=== PATIENT | male | born 1960 | race African-American/Black ===

== ENCOUNTER 2016-09-12 14:57 | Emergency (ER) | payer MEDICAID ==
[~2016-09-12] VITALS: Ht 175.3 cm; Wt 100.7 kg
[~2016-09-12 14:57] MED LIST: AMITR; ATEN1TAB38; GLYB2.5T76
[2016-09-12] MEDS ORDERED: IOHEXOL 350 MG/ML 100ML IJ ONE (15:23)
[2016-09-12 16:50] LABS: Basophils # (auto) 0 uL; Basophils % (auto) 0.5 % (0.0-2.0); DEFINITIVE VIEW TRANSMISSION; Eosinophils # (auto) 0.2 uL; Eosinophils % (auto) 3.1 % (0.0-7.0); Hematocrit 44.6 % (41.0-53.0); Hemoglobin 14.5 g/dL (13.5-17.5); Lymphocytes # (auto) 2.2 uL; Lymphocytes % (auto) 34.6 % (10.0-50.0); Mean Corpuscular Hemoglobin 26.1 pg (28.0-32.0); Mean Corpuscular Hgb Conc. 32.6 g/dL (32.0-36.0); Mean Corpuscular Volume 80.1 fL (80.0-100.0); Mean Platelet Volume 8.5 fL (7.4-10.4); Monocytes # (auto) 0.3 uL; Monocytes % (auto) 5.1 % (0.0-12.0); Neutrophils # (auto) 3.6 uL; Neutrophils % (auto) 56.7 % (37.0-80.0); Platelet Count (auto) 274 10^3/uL (140-450); Red Cell Distribution Width 14.6 % (11.6-16.0); White Blood Cell 6.4 10^3/uL (4.4-10.8)
[2016-09-12 16:57] LABS: Albumin 3.8 g/dL (3.4-5.0); BUN/Creatinine Ratio 9.5; Bilirubin, Total 0.4 mg/dL (0.2-1.0); Calcium 8.9 mg/dL (8.5-10.1); Potassium 3.9 mmol/L (3.5-5.1); Total Protein 7.7 g/dL (6.4-8.2)
[2016-09-12 20:43] VITALS: BP 131/62
== END 2016-09-13 02:33 | disposition home or self-care (01) ==
LOC: ER 15:00
DX: R10.11 Right upper quadrant pain (principal); R11.0 Nausea; G89.29 Other chronic pain; E11.9 Type 2 diabetes mellitus without complications; I10 Essential (primary) hypertension; I25.2 Old myocardial infarction; Z87.891 Personal history of nicotine dependence; Z79.899 Other long term (current) drug therapy
CPT/HCPCS: 36415; 74176; 80053; 82150; 83690; 85025; 93005; 99285; Q9967

== ENCOUNTER 2016-09-16 17:25 | Emergency (ER) | payer MEDICAID ==
[~2016-09-16] VITALS: Ht 175.3 cm; Wt 100.7 kg
[2016-09-16 19:15] LABS: Basophils # (auto) 0 uL; DEFINITIVE VIEW TRANSMISSION; Eosinophils # (auto) 0.1 uL; Eosinophils % (auto) 2.7 % (0.0-7.0); Hemoglobin 13.7 g/dL (13.5-17.5); Lymphocytes # (auto) 1.8 uL; Monocytes # (auto) 0.3 uL; Monocytes % (auto) 5.7 % (0.0-12.0); Neutrophils # (auto) 2.9 uL; Red Cell Distribution Width 14.2 % (11.6-16.0)
[2016-09-16 19:19] LABS: Basophils % (auto) 0.8 % (0.0-2.0); Hematocrit 42.2 % (41.0-53.0); Lymphocytes % (auto) 35.3 % (10.0-50.0); Mean Corpuscular Hemoglobin 25.4 pg (28.0-32.0); Mean Corpuscular Hgb Conc. 32.4 g/dL (32.0-36.0); Mean Corpuscular Volume 78.5 fL (80.0-100.0); Mean Platelet Volume 8.3 fL (7.4-10.4); Neutrophils % (auto) 55.5 % (37.0-80.0); Platelet Count (auto) 283 10^3/uL (140-450); White Blood Cell 5.2 10^3/uL (4.4-10.8)
[2016-09-16 19:34] LABS: Albumin 3.8 g/dL (3.4-5.0); BUN/Creatinine Ratio 6.1; Potassium 3.9 mmol/L (3.5-5.1)
[2016-09-16 19:37] LABS: Bilirubin, Total 0.2 mg/dL (0.2-1.0); Total Protein 7.8 g/dL (6.4-8.2)
[2016-09-17] MEDS ORDERED: cefTRIAXone 1GM/50ML D5W 50 ML IV ONE (03:15)
[2016-09-17] MEDS ORDERED: metroNIDAZOLE 500MG/100ML 100 ML IV ONE (03:15)
[2016-09-17 05:59] VITALS: BP 135/87
== END 2016-09-17 06:00 | disposition home or self-care (01) ==
LOC: ER 17:32
DX: K52.9 Noninfective gastroenteritis and colitis, unspecified (principal); E11.9 Type 2 diabetes mellitus without complications; I10 Essential (primary) hypertension; I25.2 Old myocardial infarction; Z87.891 Personal history of nicotine dependence
CPT/HCPCS: 36415; 74176; 76705; 80053; 82150; 83690; 85025; 94761; 96365; 96367; 99285; J0696; J3490

== ENCOUNTER 2021-07-02 11:23 | Emergency (ER) | payer MEDICARE, MEDICAID ==
[~2021-07-02] VITALS: Ht 175.3 cm; Wt 90.3 kg
[~2021-07-02 11:23] MED LIST changes: +AMIT25TA11 PO; -AMITR; +ASPI-543 PO; -ATEN1TAB38; -GLYB2.5T76; +LISI20TA28 PO; +METF-370 PO; +METO-159 PO
[2021-07-02 12:43] LABS: Basophils # (auto) 0.1 10 ^3/uL (0-0.2); Eosinophils # (auto) 0.1 10 ^3/uL (0-0.8); Eosinophils % (auto) 3.1 % (0.0-7.0); Hematocrit 41.7 % (41.0-53.0); Hemoglobin 13.5 g/dL (13.5-17.5); Lymphocytes # (auto) 1.5 10 ^3/uL (0.4-5.4); Lymphocytes % (auto) 35.8 % (10.0-50.0); Mean Corpuscular Hemoglobin 25.7 pg (28.0-32.0); Mean Corpuscular Hgb Conc. 32.4 g/dL (32.0-36.0); Mean Corpuscular Volume 79.1 fL (80.0-100.0); Monocytes # (auto) 0.2 10 ^3/uL (0-1.3); Monocytes % (auto) 5.2 % (0.0-12.0); Neutrophils # (auto) 2.3 10 ^3/uL (1.6-8.6); Neutrophils % (auto) 53.9 % (37.0-80.0); Nucleated Red Blood Cells % 0.4 %; Red Blood Cells 5.27 10^6/uL (4.5-5.90); Red Cell Distribution Width 14.7 % (11.8-14.3); White Blood Cell 4.2 10^3/uL (4.4-10.8)
[2021-07-02 13:00] LABS: Urine Bacteria NONE SEEN /hpf (None Seen); Urine Blood Negative /uL (Negative); Urine Mucus FEW (None Seen); Urine Specific Gravity 1.026 (1.001-1.035); Urine WBC 2 /hpf (0 - 3)
[2021-07-02 13:04] LABS: Potassium 4.2 mmol/L (3.5-5.1)
[2021-07-02 13:09] LABS: BUN/Creatinine Ratio 11.1; Bilirubin, Total 0.3 mg/dL (0.2-1.0); Total Protein 7.9 g/dL (6.4-8.2)
[2021-07-02 20:00] VITALS: BP 149/97
== END 2021-07-02 21:18 | disposition home or self-care (01) ==
LOC: ER 11:23
DX: R10.9 Unspecified abdominal pain (principal); R59.9 Enlarged lymph nodes, unspecified; I10 Essential (primary) hypertension; I25.2 Old myocardial infarction; E11.9 Type 2 diabetes mellitus without complications; Z87.891 Personal history of nicotine dependence; Z79.82 Long term (current) use of aspirin; Z79.899 Other long term (current) drug therapy
CPT/HCPCS: 36415; 80053; 81001; 85025; 93005; 93971